=== PATIENT | female | born 1965 | race Caucasian/White ===

== ENCOUNTER 2019-05-04 23:00 | Emergency (ER) | payer OTHER ==
[~2019-05-04] VITALS: Ht 172.7 cm; Wt 65.3 kg
--- NOTE | 2019-05-04 23:15 | NUR ---
PT BIB RA WITH A C/O ETOH. PT WAS SITTING IN THE [employer] [place] AND FELL OVER FACE FIRST ON THE GROUND. EMS WAS THERE AND SAW THE PT FALL OVER. NO KO. PT WAS APPROX 2 FEET FROM THE GROUND WHEN SHE HIT HER FACE. PT HAS 2 LACERATIONS ABOVE THE RT EYE BROW. PT REC'D TWO WARM BLANKETS.
--- NOTE | 2019-05-04 23:20 | NUR ---
PT AMBULATED TO THE BATHROOM WITH A SLOW GAIT. SLIGHT ATAXIA NOTED.
--- NOTE | 2019-05-04 23:27 | NUR ---
PT WAS ASSISTED BACK TO ER BED #14.
--- NOTE | 2019-05-04 23:29 | NUR ---
JOSE ESCOBAR, IS AT THE BEDSIDE FOR WOUND CARE. Imelda MO PA-C IS ALSO AT THE BEDSIDE.
[2019-05-04] MEDS ORDERED: TDAP [DIPH/PERTUSSIS/TET] 0.5 ML VIAL IM ONE (23:55)
[2019-05-04] MEDS ORDERED: ACETAMINOPHEN ES 500 MG TABLET ONE (23:55)
[2019-05-04] MEDS ORDERED: LIDOCAINE 1%-EPI 1:100,000 20 ML VIAL ONE (23:55)
[2019-05-05] MEDS: TDAP [DIPH/PERTUSSIS/TET] 0.5 ML VIAL IM ONE
[2019-05-05] MEDS: ACETAMINOPHEN 325 MG TABLET PO ONE
--- NOTE | 2019-05-05 00:02 | NUR ---
PT LEFT FOR CT VIA GURNEY.
[2019-05-05] MEDS: LIDOCAINE 1%-EPI 1:100,000 20 ML VIAL TP ONE (00:04)
--- NOTE | 2019-05-05 00:04 | NUR ---
SUTURE SET UP AT THE BEDSIDE
--- NOTE | 2019-05-05 00:12 | NUR ---
PT RETURNED FROM CT. MAIN PA-C IS AT THE BEDSIDE.
--- NOTE | 2019-05-05 01:04 | NUR ---
CALLING [facility] RE: RADIOLOGY READ
[2019-05-05 01:12] VITALS: BP 135/61
--- NOTE | 2019-05-05 01:13 | NUR ---
PT WAS SUTURED AND IS REC'ING A DRSG FOR HER WOUND. VSS
--- NOTE | 2019-05-05 01:22 | NUR ---
PT HAS AN OLD FX OF HER WRIST. PT IS REC'ING A VELCRO SPLINT AND SLING, PER Imelda MO PA-C.
--- NOTE | 2019-05-05 01:34 | NUR ---
PT IS HOMELESS AND IS REFUSING LONG-TERM INFO AND HOMELESS RESOURCES. PT IS UPSET BECAUSE SHE CAN NOT FIND HER PURSE. PT IS STILL SLIGHTLY ATAXIC WHEN SHE AMBULATES. Imelda MO PA-C WAS NOTIFIED. PT TO WAIT FOR A BIT LONGER BEFORE SHE CAN BE DISCHARGED. PRISCILA XIE/CHG IS AWARE.
--- NOTE | 2019-05-05 01:56 | NUR ---
Patient discharged to home in stable condition. Patient given written and verbal discharge instructions. Patient verbalizes understanding of instructions. Patient is ambulatory with steady gait. Refuses offer of correction placement. Patient given list of available shelters in surrounding area AND A TAP CARD. PT AMBULATED TO THE [facility] WHERE SHE WANTS TO WAIT UNTIL THE BUSES ARE RUNNING. VSS. NAD NOTED.
== END 2019-05-05 02:09 | disposition home or self-care (01) ==
LOC: ER 23:01
DX: S01.81XA Laceration without foreign body of other part of head, initial encounter (principal); M25.531 Pain in right wrist; G89.29 Other chronic pain; F10.10 Alcohol abuse, uncomplicated; I10 Essential (primary) hypertension; E78.5 Hyperlipidemia, unspecified; F41.9 Anxiety disorder, unspecified; K21.9 Gastro-esophageal reflux disease without esophagitis; F17.200 Nicotine dependence, unspecified, uncomplicated; Z88.2 Allergy status to sulfonamides; Z60.2 Problems related to living alone; W01.0XXA Fall on same level from slipping, tripping and stumbling without subsequent striking against object, initial encounter; Y93.89 Activity, other specified; Y92.481 Parking lot as the place of occurrence of the external cause; Y99.8 Other external cause status; Y90.9 Presence of alcohol in blood, level not specified
CPT/HCPCS: 12053; 29125; 70450; 73110; 90471; 90715; 99284; A6402; A6403; J3490

== ENCOUNTER 2019-08-16 01:50 | Emergency (ER) | payer MEDICAID, OTHER ==
[~2019-08-16] VITALS: Ht 172.7 cm; Wt 59.0 kg
--- NOTE | 2019-08-16 02:03 | NUR ---
ADRIEL FROM A FRIENDS HOUSE. TO ER BED 9. AAOX4. SMELLS OF ALCOHOL. NO RESP DISTRESS. AMBULATORY. C/O HEAD HEMATOMA ON L FORE HEAD S/P GLF AFTER BEING PUSHED. PT RATES PAIN 2/10. NO NEURO DEFICIT NOTED. MD WAS AT BEDSIDE FOR EVAL. AWAITING ORDERS
--- NOTE | 2019-08-16 02:06 | NUR ---
[employer] AT BEDSIDE TALKING TO PT
--- NOTE | 2019-08-16 02:10 | NUR ---
PT TO CT ON [place]
--- NOTE | 2019-08-16 03:20 | NUR ---
Patient discharged to home in stable condition. Written and verbal after care instructions given. Patient verbalizes understanding of instruction. Pt ambulatory with a steady gait
[2019-08-16 04:09] VITALS: BP 126/81
== END 2019-08-16 03:20 | disposition home or self-care (01) ==
LOC: ER 01:51
DX: F10.10 Alcohol abuse, uncomplicated (principal); I10 Essential (primary) hypertension; E78.00 Pure hypercholesterolemia, unspecified; K21.9 Gastro-esophageal reflux disease without esophagitis; F41.9 Anxiety disorder, unspecified; F17.200 Nicotine dependence, unspecified, uncomplicated; Z88.2 Allergy status to sulfonamides; Z60.2 Problems related to living alone; Y90.9 Presence of alcohol in blood, level not specified
CPT/HCPCS: 70450-TC

== ENCOUNTER 2021-08-13 17:06 | Emergency (ER) | payer MEDICAID ==
[~2021-08-13] VITALS: Ht 175.3 cm; Wt 57.6 kg
--- NOTE | 2021-08-13 17:16 | NUR ---
The patient is [id number] home, anxiety, L sided chest pain, nausea started around 1630 zofran 4mg ivp given area captain. The patient rates chest pain 3/10. In room air and denies SOB. Respiration regular and unlabored. The patient is attached to the bed. Warm blanket provided for comfort. Will continue to monitor the patient.
[2021-08-13] MEDS ORDERED: LORAZEPAM 1 MG TABLET ONE (17:53)
[2021-08-13] MEDS ORDERED: LORAZEPAM 1 MG TABLET PO ONE (18:00)
[2021-08-13] MEDS ORDERED: LORA-259 PO (18:26)
[2021-08-13 19:12] LABS: BASOPHILS # (AUTO) 0.1 K/uL (0.0-0.2); BASOPHILS % (AUTO) 1.1 % (0.0-2.0); EOSINOPHILS % (AUTO) 0.7 % (0.0-6.0); HEMATOCRIT 30 % (33-45); HEMOGLOBIN 10.3 g/dL (11.5-14.8); LYMPHOCYTES # (AUTO) 1.1 K/uL (0.8-4.8); MEAN CORPUSCULAR HGB CONC 34 g/dl (31.0-36.0); MEAN CORPUSCULAR VOLUME 101 fL (82-100); MONOCYTES # (AUTO) 0.6 K/uL (0.1-1.30); MONOCYTES % (AUTO) 11.3 % (2.0-12.0); NEUTROPHILS # (AUTO) 3.5 K/uL (1.8-8.9); NEUTROPHILS % (AUTO) 65.9 % (43.0-81.0); PLATELET COUNT (AUTO) 176 K/uL (150-450); RED BLOOD CELL COUNT(AUTO) 2.95 MIL/uL (4.0-5.2); WHITE BLOOD COUNT (AUTO) 5.3 K/uL (4.3-11.0)
[2021-08-13 19:28] LABS: CALCIUM, SERUM 8.3 mg/dL (8.5-10.1); CREATININE 0.8 mg/dL (0.6-1.3); POTASSIUM 4.5 mmol/L (3.5-5.1)
--- NOTE | 2021-08-13 19:28 | NUR ---
REPORT GIVEN TO NURSE ILIA
[2021-08-13 19:31] LABS: BILIRUBIN,TOTAL 0.6 mg/dL (0.2-1.0); TOTAL PROTEIN, SERUM 7.5 g/dL (6.4-8.2)
[2021-08-13] MEDS ORDERED: IV NS 0.9% 1,000 ML BAG IV ONE (20:00)
--- NOTE | 2021-08-13 20:14 | NUR ---
IV removed. Catheter intact and site benign. Pressure and 4x4 applied to site. No bleeding noted.
--- NOTE | 2021-08-13 20:38 | NUR ---
Patient discharged to home in stable condition. Written and verbal after care instructions given. Patient verbalizes understanding of instruction. RX given
[2021-08-13 20:39] VITALS: BP 135/90
== END 2021-08-13 20:44 | disposition home or self-care (01) ==
LOC: ER 17:35
DX: F41.9 Anxiety disorder, unspecified (principal); D64.9 Anemia, unspecified; E87.1 Hypo-osmolality and hyponatremia; I10 Essential (primary) hypertension; E78.00 Pure hypercholesterolemia, unspecified; K21.9 Gastro-esophageal reflux disease without esophagitis; F32.9 Major depressive disorder, single episode, unspecified; Z88.2 Allergy status to sulfonamides; Z60.2 Problems related to living alone; Z79.899 Other long term (current) drug therapy
CPT/HCPCS: 36415; 71045; 80053; 83690; 84484; 85025; 93005; 96360; 99285; J7030

== ENCOUNTER 2021-10-07 21:44 | Emergency (ER) | payer MEDICAID ==
[~2021-10-07] VITALS: Ht 175.3 cm; Wt 56.7 kg
[~2021-10-07 21:44] MED LIST: LORA-259 PO
--- NOTE | 2021-10-07 22:02 | NUR ---
AMBULATORY TO [facility] ER FOR C/O L HAND / WRIST PAIN S/P SLIP AND FALL. VSS.
--- NOTE | 2021-10-07 22:04 | NUR ---
RADIOLOGY AT BEDSIDE
[2021-10-07] MEDS ORDERED: IBUPROFEN 600 MG TABLET ONE (22:29)
[2021-10-07] MEDS ORDERED: IBUPROFEN 600 MG TABLET PO ONE (22:30)
--- NOTE | 2021-10-07 22:30 | NUR ---
Patient discharged to home in stable condition. Written and verbal after care instructions given. Patient verbalizes understanding of instruction.
[2021-10-07] MEDS ORDERED: IBUP-1955 PO (22:34)
[2021-10-07 22:43] VITALS: BP 103/71
--- NOTE | 2021-10-07 22:43 | NUR ---
Patient discharged to home in stable condition. Written and verbal after care instructions given. Patient verbalizes understanding of instruction.
== END 2021-10-07 22:43 | disposition home or self-care (01) ==
LOC: ER 21:45
DX: S60.222A Contusion of left hand, initial encounter (principal); S60.212A Contusion of left wrist, initial encounter; W01.0XXA Fall on same level from slipping, tripping and stumbling without subsequent striking against object, initial encounter; Y93.89 Activity, other specified; Y92.89 Other specified places as the place of occurrence of the external cause; Y99.8 Other external cause status
CPT/HCPCS: 73110; 73130-TC

== ENCOUNTER 2021-11-24 09:50 | Emergency (ER) | payer MEDICAID ==
[~2021-11-24] VITALS: Ht 175.3 cm; Wt 61.2 kg
[~2021-11-24 09:50] MED LIST changes: +IBUP-1955 PO
[2021-11-24] MEDS ORDERED: LORAZEPAM 1 MG TABLET PO ONE (10:00)
--- NOTE | 2021-11-24 10:00 | NUR ---
[address] [address] C/O L SIDED SHARP CHEST PAIN 5/10 X 2 WEEKS ON AND OFF. ALERT AND ORIENTED X4. DENIES SOB. RESPIRATION REGULAR AND UNLABORED. ATTACHED TO THE MONITOR.
--- NOTE | 2021-11-24 10:15 | NUR ---
IV LINE IS ESTABLISHED, BLOOD SPECIMEN COLLECTED AND SENT TO THE LAB
[2021-11-24] MEDS ORDERED: LORAZEPAM 1 MG TABLET ONE (10:16)
[2021-11-24 10:23] LABS: BASOPHILS % (AUTO) 0.9 % (0.0-2.0); EOSINOPHILS % (AUTO) 0.1 % (0.0-6.0); HEMATOCRIT 33 % (33-45); HEMOGLOBIN 11.4 g/dL (11.5-14.8); LYMPHOCYTES # (AUTO) 0.7 K/uL (0.8-4.8); LYMPHOCYTES % (AUTO) 13.8 % (20.0-44.0); MEAN CORPUSCULAR HGB CONC 34 g/dl (31.0-36.0); MEAN CORPUSCULAR VOLUME 101 fL (82-100); MONOCYTES # (AUTO) 0.4 K/uL (0.1-1.30); MONOCYTES % (AUTO) 7.7 % (2.0-12.0); NEUTROPHILS % (AUTO) 77.5 % (43.0-81.0); PLATELET COUNT (AUTO) 179 K/uL (150-450); WHITE BLOOD COUNT (AUTO) 5.2 K/uL (4.3-11.0)
[2021-11-24 10:53] LABS: CALCIUM, SERUM 8.6 mg/dL (8.5-10.1); CARBON DIOXIDE 27 mmol/L (21-32); CHLORIDE 95 mmol/L (98-107); CREATININE 0.9 mg/dL (0.6-1.3); GLUCOSE 149 mg/dL (74-106); SODIUM SERUM 134 mmol/L (136-145); UREA NITROGEN, BLOOD 10 mg/dL (7-18)
[2021-11-24] MEDS ORDERED: LORA-259 PO (12:37)
--- NOTE | 2021-11-24 12:46 | NUR ---
The patient is alert and oriented x4. Denies pain. In room air and denies SOB. Respiration regular and unlabored. IV removed. Catheter intact and site benign. Pressure and 4x4 applied to site. No bleeding noted.Patient discharged to home in stable condition. Written and verbal after care instructions given. Patient verbalizes understanding of instruction.
[2021-11-24 12:47] VITALS: BP 126/77
== END 2021-11-24 12:47 | disposition home or self-care (01) ==
LOC: ER 09:56
DX: F10.239 Alcohol dependence with withdrawal, unspecified (principal); F41.9 Anxiety disorder, unspecified; R07.89 Other chest pain; I10 Essential (primary) hypertension; E78.00 Pure hypercholesterolemia, unspecified; J44.9 Chronic obstructive pulmonary disease, unspecified; K21.9 Gastro-esophageal reflux disease without esophagitis; F17.200 Nicotine dependence, unspecified, uncomplicated; Z88.2 Allergy status to sulfonamides; Z79.899 Other long term (current) drug therapy; Y90.9 Presence of alcohol in blood, level not specified
CPT/HCPCS: 36415; 71045-TC; 80048-TC; 84484-TC; 85025-TC

== ENCOUNTER 2022-07-08 11:20 | Emergency (ER) | payer MEDICAID ==
[~2022-07-08] VITALS: Ht 172.7 cm; Wt 56.2 kg
[2022-07-08 12:02] LABS: EOSINOPHILS % (AUTO) 1.2 % (0.0-6.0); HEMATOCRIT 30 % (33-45); HEMOGLOBIN 10.1 g/dL (11.5-14.8); LYMPHOCYTES # (AUTO) 1.2 K/uL (0.8-4.8); LYMPHOCYTES % (AUTO) 25.6 % (20.0-44.0); MEAN CORPUSCULAR HGB CONC 34 g/dl (31.0-36.0); MEAN CORPUSCULAR VOLUME 103 fL (82-100); MONOCYTES # (AUTO) 0.5 K/uL (0.1-1.30); MONOCYTES % (AUTO) 11.1 % (2.0-12.0); NEUTROPHILS # (AUTO) 2.9 K/uL (1.8-8.9); NEUTROPHILS % (AUTO) 61.1 % (43.0-81.0); PLATELET COUNT (AUTO) 272 K/uL (150-450); RED BLOOD CELL COUNT(AUTO) 2.86 MIL/uL (4.0-5.2); WHITE BLOOD COUNT (AUTO) 4.8 K/uL (4.3-11.0)
[2022-07-08 12:35] LABS: ALANINE AMINOTRANSFERASE 39 U/L (12-78); ALBUMIN 3.5 g/dL (3.4-5.0); ALKALINE PHOSPHATASE 68 U/L (46-116); ASPARTATE AMINOTRANSFERASE 45 U/L (15-37); BILIRUBIN,DIRECT 0.1 mg/dL (0.0-0.2); BILIRUBIN,TOTAL 0.3 mg/dL (0.2-1.0); CALCIUM, SERUM 8.4 mg/dL (8.5-10.1); CARBON DIOXIDE 26 mmol/L (21-32); CHLORIDE 98 mmol/L (98-107); CREATININE 0.7 mg/dL (0.6-1.3); GLUCOSE 85 mg/dL (74-106); POTASSIUM 4.2 mmol/L (3.5-5.1); SODIUM SERUM 134 mmol/L (136-145); TOTAL PROTEIN, SERUM 6.9 g/dL (6.4-8.2); UREA NITROGEN, BLOOD 6 mg/dL (7-18)
[2022-07-08] MEDS ORDERED: SIMV-46 PO (13:05)
[2022-07-08] MEDS ORDERED: LISI40TA13 PO (13:05)
[2022-07-08] MEDS ORDERED: PANT40TA49 PO (13:05)
[2022-07-08] MEDS ORDERED: TIOT18CA3 IH (13:05)
[2022-07-08] MEDS ORDERED: IOHEXOL-350 100 ML VIAL IV ONE (13:09)
[2022-07-08 22:38] VITALS: BP 135/72
== END 2022-07-08 22:39 | disposition short-term general hospital (02) ==
LOC: ER 11:23
DX: R07.9 Chest pain, unspecified (principal); R79.1 Abnormal coagulation profile; F17.200 Nicotine dependence, unspecified, uncomplicated; J44.9 Chronic obstructive pulmonary disease, unspecified; K21.9 Gastro-esophageal reflux disease without esophagitis; Z88.2 Allergy status to sulfonamides; I10 Essential (primary) hypertension; E78.00 Pure hypercholesterolemia, unspecified; Z79.899 Other long term (current) drug therapy; Z20.822 Contact with and (suspected) exposure to COVID-19
CPT/HCPCS: 99285; 71275; 71045; 87426; 93005; 85025; 80048; 80076; 85378; 36415; 84484 ×2; Q9967; C9803